=== PATIENT | female | born 1945 | race Caucasian/White ===

== ENCOUNTER → 2017-01-17 | Outpatient (CLI) | payer MEDICARE ==
--- NOTE | 2017-01-17 11:32 | MM ---
Reason for exam: screening (asymptomatic). Last mammogram was performed 1 year ago. History: Patient is postmenopausal. Family history of breast cancer in mother at age 82. Physical Findings: A clinical breast exam by your physician is recommended on an annual basis and results should be correlated with mammographic findings. MG 3D Screening Mammo W/Cad Bilateral CC and MLO view(s) were taken. Prior study comparison: January 16, 2016, bilateral MG 3d screening mammo w/cad. January 12, 2015, bilateral MG screening mammo w CAD. January 11, 2014, bilateral digital screening mammo w/CAD. There are scattered fibroglandular densities. There is chronic nodularity bilaterally. There is no discrete abnormality. ASSESSMENT: Benign, BI-RAD 2 RECOMMENDATION: Routine screening mammogram of both breasts in 1 year.
== END | disposition home or self-care (01) ==
LOC: RADMAMWWP 10:51
PROVIDERS: ATTEND Family Medicine
DX: Z12.31 Encounter for screening mammogram for malignant neoplasm of breast (principal)
CPT/HCPCS: 77063; G0202

== ENCOUNTER → 2018-01-20 | Outpatient (CLI) | payer MEDICARE ==
--- NOTE | 2018-01-21 13:46 | MM ---
Reason for exam: screening (asymptomatic). Last mammogram was performed 1 year ago. History: Patient is postmenopausal. Family history of breast cancer in mother at age 82. Physical Findings: A clinical breast exam by your physician is recommended on an annual basis and results should be correlated with mammographic findings. MG 3D Screening Mammo W/Cad Bilateral CC and MLO view(s) were taken. Prior study comparison: January 17, 2017, bilateral MG 3d screening mammo w/cad. January 16, 2016, bilateral MG 3d screening mammo w/cad. There are scattered fibroglandular densities. Finding: There are typically benign round, diffuse/scattered and grouped calcifications in the left breast. There is a chronic nodularity bilaterally. There is no discrete abnormality. ASSESSMENT: Benign, BI-RAD 2 RECOMMENDATION: Routine screening mammogram of both breasts in 1 year.
== END | disposition home or self-care (01) ==
LOC: RADMAMWWP 09:21
PROVIDERS: ATTEND Family Medicine
DX: Z12.31 Encounter for screening mammogram for malignant neoplasm of breast (principal)
CPT/HCPCS: 77063; 77067

== ENCOUNTER → 2019-01-21 | Outpatient (CLI) | payer MEDICARE ==
--- NOTE | 2019-01-22 11:04 | MM ---
Reason for exam: screening (asymptomatic). Last mammogram was performed 1 year ago. History: Patient is postmenopausal. Family history of breast cancer in mother at age 82. Physical Findings: A clinical breast exam by your physician is recommended on an annual basis and results should be correlated with mammographic findings. MG 3D Screening Mammo W/Cad Bilateral CC and MLO view(s) were taken. Prior study comparison: January 20, 2018, bilateral MG 3d screening mammo w/cad. January 17, 2017, bilateral MG 3d screening mammo w/cad. There are scattered fibroglandular densities. There is a 3mm group of increasing calcifications in the left central slightly superior lower breast at middle depth. Stable left upper outer quadrant focal asymmetry. ASSESSMENT: Incomplete: need additional imaging evaluation, BI-RAD 0 RECOMMENDATION: Special view mammogram of the left breast. [facility] will attempt to contact patient to return for supplemental views.
== END | disposition home or self-care (01) ==
LOC: RADMAMWWP 09:03
PROVIDERS: ATTEND Family Medicine
DX: Z12.31 Encounter for screening mammogram for malignant neoplasm of breast (principal); Z80.3 Family history of malignant neoplasm of breast
CPT/HCPCS: 77063; 77067

== ENCOUNTER → 2019-01-27 | Outpatient (CLI) | payer MEDICARE ==
--- NOTE | 2019-01-28 07:40 | MM ---
Reason for exam: additional evaluation requested from abnormal screening. Last mammogram was performed less than 1 month ago. History: Patient is postmenopausal. Family history of breast cancer in mother at age 82. Physical Findings: Nurse did not find any significant physical abnormalities on exam. MG 3D Work Up W/Cad LT CC with magnification, LM with magnification, and LM view(s) were taken of the left breast. Prior study comparison: January 21, 2019, bilateral MG 3d screening mammo w/cad. January 20, 2018, bilateral MG 3d screening mammo w/cad. The breast tissue is heterogeneously dense. This may lower the sensitivity of mammography. There is an increasing group of 3mm calcifications in the upper inner quadrant at middle depth that have increased in size when compared in comparison to 2016. These results were verbally communicated with the patient and result sheet given to the patient on 01/27/19. ASSESSMENT: Suspicious, BI-RAD 4 RECOMMENDATION: Stereotactic core biopsy of the left breast. Called with mammographic findings and has scheduled an appointment for the patient for 02/15/[address] Covarrubias. PRELIMINARY REPORT CALLED AND FAXED TO DR. COVARRUBIAS ON 01/27/19.
== END | disposition home or self-care (01) ==
LOC: RADMAMWWP 13:58
PROVIDERS: ATTEND Family Medicine
DX: R92.8 Other abnormal and inconclusive findings on diagnostic imaging of breast (principal)
CPT/HCPCS: 77065; G0279; 77061

== ENCOUNTER → 2019-02-20 | Outpatient (CLI) | payer MEDICARE ==
[2019-02-20 11:31] VITALS: BP 189/86; PULSE 72; RESP 18; BMI 41.5
--- NOTE | 2019-02-20 12:02 | P.GSHP ---
History of Present Illness H&P Date: 02/20/19 Chief Complaint: Mammographic abnormality left breast Sangita is a 73-year-old white female who on a routine screening mammogram was noted to have an area of concern in her left breast. Of additional views of the left breast revealed some increasing calcification in a 3 mm groove with calcifications in the upper inner quadrant at middle depth. This was performed and 326-19. Sangita has not felt anything of concern in her breast. She has no nipple discharge or skin changes of concern. She has no history of any trauma or infection in the past. She has no history of any nipple discharge or changes. She has never had a biopsy of the breast. Family History: mother: of breast cancer at 84 4 brothers: prostate cancer grandfather maternal: prostate Hormonal history: Menarche:12 : , breast fed: no, first born at 21 menopause: 54 BCP: yes, 8 years hormones: none Past surgical history: 1. Tubal ligation 2. Tonsillectomy 3. right knee surgery Past medical history: 1. Hypertension 2. artheritis Social history: Smoke: Never Alcohol: Weekends Drugs: Negative - Constitutional Constitutional: Denies chills, Denies fever - EENT Eyes: denies blurred vision, denies pain Ears: deny: decreased hearing, tinnitus Ears, nose, mouth and throat: Denies headache, Denies sore throat - Breasts Breasts: bilateral: as per HPI - Cardiovascular Cardiovascular: Reports high blood pressure - Respiratory Respiratory: Denies cough, Denies 7 - Gastrointestinal Gastrointestinal: Denies abdominal pain, Denies diarrhea, Denies nausea, Denies vomiting - Genitourinary (Female) Genitourinary: Denies dysuria, Denies hematuria - Menstruation Menstruation: Reports postmenopausal - Musculoskeletal Comment: arthritis - Integumentary Comment: psoriasis - Neurological Neurological: Denies numbness, Denies weakness - Psychiatric Psychiatric: Denies anxiety, Denies depression - Endocrine Endocrine: Denies fatigue, Denies weight change - Hematologic/Lymphatic Comment: none - Allergic/Immunologic Allergic/Immunologic: Reports seasonal allergies Past Medical History Past Medical History: Hypertension History of Any Multi-Drug Resistant Organisms: None Reported Past Surgical History: Tubal Ligation Past Anesthesia/Blood Transfusion Reactions: No Reported Reaction Smoking Status: Never smoker - Past Family History Mother History Unknown: Yes Family Medical History: Cancer Additional Family Medical History / Comment(s): breast cancer Medications and Allergies Home Medications Medication Instructions Recorded Confirmed Type Cinnamon Bark [Cinnamon] 1 tablet PO DAILY 02/11/19 02/20/19 History Meloxicam [Mobic] 1 tab PO DAILY 02/11/19 02/20/19 History Pravastatin Sodium [Pravachol] 1 tablet PO WEEKLY 02/11/19 02/20/19 History Ubidecarenone [Co Q-10] 100 mg PO DAILY 02/11/19 02/20/19 History Vit D3/Folic Acid/B2/B6/B12 1 tablet PO DAILY 02/11/19 02/20/19 History [Folgard Tablet] amLODIPine [Norvasc] 1 tab PO DAILY 02/11/19 02/20/19 History Diclofenac Sodium [Voltaren Gel] 2 gram TOPICAL 02/20/19 History Allergies Allergy/AdvReac Type Severity Reaction Status Date / Time latex Allergy Rash/Hives Verified 02/20/19 11:33 loratadine [From Claritin] AdvReac Unknown Unverified 02/20/19 11:33 sulfamethoxazole AdvReac Unknown Unverified 02/20/19 11:33 [From Bactrim] trimethoprim [From Bactrim] AdvReac Unknown Unverified 02/20/19 11:33 Surgical - Exam Vital Signs Pulse Resp BP Pulse Ox 72 18 189/86 98 02/20/19 11:28 02/20/19 11:28 02/20/19 11:28 02/20/19 11:28 BMI 41.6 - General obese - Eyes normal ocular movement - ENT no hearing loss, no congestion - Neck trachea midline - Respiratory normal respiratory effort, clear to auscultation - Cardiovascular Rhythm: regular Heart Sounds: normal: S1, S2 - Abdomen Abdomen: soft, non tender, no guarding, no rigid, no rebound - Neurologic no disoriented, no combative - Musculoskeletal limited secondary to arthritis - Psychiatric oriented to time, oriented to person, oriented to place, speech is normal, memory intact breast exam: BRA 44DDD right breast: Multi-positional exam no dominant masses or nodules of concern, fibrocystic changes, resolving fungal infection inferior to the breast Right axilla: No adenopathy of concern Left breast: Multi-positional exam no dominant masses or nodules of concern, the adult special attention to the upper inner area did not reveal any discrete masses or lesions of concern Left axilla: No adenopathy of concern Results Mammogram results reviewed Assessment and Plan Assessment: Impression: 1. Radiographic abnormality left breast 2. Fibrocystic breast changes 3. Hypertension 4. Arthritis 5. Family history of cancer 6. Resolving fungal infection under right breast 7. BMI 41.6 Plan: 1. Stereotactic core biopsy of the left breast 2. Medical management of medical conditions 3. Patient has stopped her morbid and will not take any rotators between now and the biopsy I discussed risk and benefits of the procedure with the patient and her they understand and wish to proceed. CC: Dr. Velazquez
== END | disposition home or self-care (01) ==
LOC: WWCWWP 11:13
PROVIDERS: ATTEND Surgery
DX: Z53.9 Procedure and treatment not carried out, unspecified reason (principal)

== ENCOUNTER → 2019-02-26 | Day surgery (SDC) | payer MEDICARE ==
[2019-02-26 07:29] VITALS: BP 145/89; PULSE 79; RESP 16; TEMP 98.4; BMI 42.7
--- NOTE | 2019-02-26 08:58 | P.PN ---
Progress Note - Text Progress Note Date: 02/26/19 Sangita is a 73-year-old white female with a radiographic abnormality in her left breast. Attempted stereotactic core biopsy was unsuccessful. The lesion could not be localized from multiple blood vessels. Therefore, after review with radiology it was recommended she undergo a needle local excision and excision in the operating room. The patient and her family are aware of this. This will be scheduled in the near future. She understands the risks and benefits and wishes to proceed. Risks include but are not limited to bleeding, infection, or inability to identify the lesion.
--- NOTE | 2019-02-26 19:39 | MM ---
EXAMINATION TYPE: MG discontinued stereo core LT DATE OF EXAM: 02/26/2019 COMPARISON: 01/21/2019 and 01/27/2019 CLINICAL HISTORY: 73-year-old female referred for stereotactic core needle biopsy of 9:00 left breast microcalcifications. TECHNIQUE: Canceled procedure. FINDINGS: The procedure of stereotactic guided core biopsy was explained to the patient. Benefits, alternatives, and risks were discussed. An informed consent was then obtained. The shortness pathway for biopsy was, a medial approach. However, the patient was placed in compression in both medial and orthogonal planes but a safe path to the calcifications could not be secured due to overlying blood vessels despite multiple attempts at repositioning and rolling the breast. Together with Dr. Noah Villa, decision was made to convert to needle localization with excision for the 9:00 left breast microcalcifications. IMPRESSION: Canceled stereotactic core needle biopsy of 9:00 left breast microcalcifications due to persistent overlying vessels despite multiple attempts at repositioning. The patient will follow-up with Dr. Noah Villa for needle localization and excision of microcalcifications. LYRIC
== END ==
LOC: RADMAMWWP 07:04
PROVIDERS: ATTEND Surgery
DX: R92.8 Other abnormal and inconclusive findings on diagnostic imaging of breast (principal); Z53.8 Procedure and treatment not carried out for other reasons; Z88.2 Allergy status to sulfonamides; Z91.040 Latex allergy status

== ENCOUNTER 2019-03-17 07:56 | Day surgery (SDC) | payer MEDICARE ==
[2019-03-16 10:08] VITALS: BMI 42.2
[~2019-03-17 07:56] MED LIST: DEXAMETHASONE SOD PHOSPHATE 10 MG/ML 1 ML VIAL IV ONE; HYDROmorphone 0.5 MG/0.5 ML SYRINGE IVP PRN; MIDAZOLAM 2 MG/2 ML VIAL IV PRN; ONDANSETRON 4 MG/2 ML VIAL IVP ONE; Pre Op ABX Message 1 EACH MISC MISCELLANE ONE
--- NOTE | 2019-03-17 08:27 | P.GSHP ---
History of Present Illness H&P Date: 03/17/19 Chief Complaint: Radiographic abnormality left breast The patient is a 73-year-old white female who underwent a routine screening mammogram was noted to have an area of concern in her left breast. Additional views of the left breast revealed some increasing calcification and a 3 mm area with calcification in the upper inner quadrant at middle depth. This radiograph was performed on . She has not noted any skin changes or masses in her breasts. She denies any nipple discharge. She has no history of any trauma or infection in the past. She has never had a biopsy of her breast. An attempt at stereo biopsy was performed and [phone]. The lesion cannot be localized from multiple blood vessels. Therefore after review with radiology was recommended she undergo needle localization and excisional biopsy in the operating room. Family history: Mother: Diet breast cancer at 84 4 brothers: Prostate cancer Maternal grandfather: Prostate cancer Hormonal history: Menarche: 12 Pregnancies: , breast fed: No, first both at 21 Menopause: 54 Procedure post: Yes 8 years Hormones: Negative Past surgical history: 1. Tubal ligation 2. Tonsillectomy 3. Right knee surgery Past medical history: 1. Hypertension 2. Arthritis Social history: Smoke: Negative Alcohol: We consider Drugs: Negative - Constitutional Constitutional: Denies chills, Denies fever - EENT Eyes: denies blurred vision, denies pain Ears: deny: decreased hearing, tinnitus Ears, nose, mouth and throat: Denies headache, Denies sore throat - Cardiovascular Cardiovascular: Reports high blood pressure - Respiratory Respiratory: Denies cough, Denies 7 - Gastrointestinal Gastrointestinal: Denies abdominal pain, Denies diarrhea, Denies nausea, Denies vomiting - Genitourinary (Female) Genitourinary: Denies dysuria, Denies hematuria - Menstruation Menstruation: Reports postmenopausal - Musculoskeletal Comment: arthritis - Integumentary Comment: psoriasis - Neurological Neurological: Denies numbness, Denies weakness - Psychiatric Psychiatric: Denies anxiety, Denies depression - Endocrine Endocrine: Denies fatigue, Denies weight change - Hematologic/Lymphatic Comment: none - Allergic/Immunologic Allergic/Immunologic: Reports seasonal allergies Past Medical History Past Medical History: GERD/Reflux, Hypertension, Osteoarthritis (OA), Skin Disorder Additional Past Medical History / Comment(s): varicose veins, seasonal allergies, patch of eczema on leg, 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", arthritis in feet and ankles History of Any Multi-Drug Resistant Organisms: None Reported Past Surgical History: Joint Replacement, Tonsillectomy, Tubal Ligation Additional Past Surgical History / Comment(s): melanoma removed from nose, rt knee replacement Past Anesthesia/Blood Transfusion Reactions: Motion Sickness Smoking Status: Never smoker - Past Family History Mother History Unknown: Yes Family Medical History: Cancer Additional Family Medical History / Comment(s): breast cancer Brother(s) Family Medical History: Cancer Additional Family Medical History / Comment(s): 4 brothers had prostate cancer Medications and Allergies Home Medications Medication Instructions Recorded Confirmed Type Cinnamon Bark [Cinnamon] 500 mg PO BID 02/11/19 03/16/19 History Pravastatin Sodium [Pravachol] 40 mg PO MOWEFR 02/11/19 03/16/19 History Ubidecarenone [Co Q-10] 100 mg PO DAILY 02/11/19 03/16/19 History Diclofenac Sodium [Voltaren Gel] 1 applicate TOPICAL DAILY PRN 02/20/19 03/16/19 History Cholecalciferol (Vitamin D3) 1,000 unit PO DAILY 03/16/19 03/16/19 History [Vitamin D3] Fluticasone Nasal [place] [Flonase 1 spray EA NOSTRIL DAILY 03/16/19 03/16/19 Hi story Nasal [place]] Magnesium 200 mg PO DAILY 03/16/19 03/16/19 History Meloxicam, Submicronized [Vivlodex] 5 mg PO DAILY 03/16/19 03/16/19 History Valsartan [Diovan] 160 mg PO DAILY 03/16/19 03/16/19 History Allergies Allergy/AdvReac Type Severity Reaction Status Date / Time clarithromycin Allergy nervous Verified 03/16/19 09:56 latex Allergy Rash/Hives/red Verified 03/16/19 09:56 skin sulfamethoxazole AdvReac Unknown Unverified 03/16/19 09:56 [From Bactrim] trimethoprim [From Bactrim] AdvReac Unknown Unverified 03/16/19 09:56 Surgical - Exam BMI 41.6 - General obese - Eyes normal ocular movement - ENT normal pinna, no hearing loss - Neck no masses, trachea midline - Respiratory normal respiratory effort, clear to auscultation - Cardiovascular Rhythm: regular Heart Sounds: normal: S1, S2 - Abdomen Abdomen: soft, non tender, no guarding, no rigid, no rebound - Integumentary normal turgor - Neurologic no disoriented, no combative - Musculoskeletal limited secondary to arthritis - Psychiatric oriented to time, oriented to person, oriented to place, speech is normal, memory intact Breast exam BRA 44DDD Right breast: Multi-positional exam no dominant masses or nodules of concern, fibrocystic changes Right axilla: No adenopathy of concern Left breast: Multiple positional exam no dominant masses or nodules of concern, especially attention to the upper inner area did not reveal any discrete masses or lesions of concern Left axilla: No adenopathy of concern Results Mammogram reviewed Assessment and Plan Assessment: Impression: 1. Radiographic abnormality left breast 2. Attempted stereotactic core biopsy unsuccessful secondary to vasculature in the area 3. Fibrocystic breast changes 4. Hypertension 5. Arthritis 6. Family history of cancer 7. BMI 41.6 Plan: 1. Needle localization and excisional biopsy the area of concern in the left breast 2. Medical management of medical conditions Risks and benefits of the procedure were discussed with the patient and her , they understand and wish to proceed. The patient is going to undergo a needle localization and excisional biopsy of the area of concern in the left breast. CC: Dr. Velazquez
[2019-03-17] MEDS ORDERED: ALPRAZolam 0.25 MG TAB PO ONE (08:33)
[2019-03-17] MEDS: LACTATED RINGERS 1,000 ML IV SCH ×2 (08:34→10:12)
[2019-03-17 09:01] VITALS: RESP 16
[2019-03-17] MEDS ORDERED: SODIUM BICARB 4% 5 ML VIAL (0.48 MEQ/ML) MISCELLANE ONE (09:38)
[2019-03-17] MEDS ORDERED: LIDOCAINE 1% INJ 10MG/ML (20 ML MDV) SQ ONE (09:38)
[2019-03-17] MEDS ORDERED: ONDANSETRON 4 MG/2 ML VIAL ONE (10:13)
[2019-03-17] MEDS ORDERED: fentaNYL (PF) 50 MCG/ML 2 ML AMP ONE (10:13)
[2019-03-17] MEDS ORDERED: SUCCINYLCHOLINE CHLORIDE VIAL 200 MG/10 ML VIAL IV ONE (10:13)
[2019-03-17] MEDS ORDERED: PHENYLEPHRINE-0.9% NACL SYG 1 MG/10 ML SYRINGE ONE (10:13)
[2019-03-17] MEDS ORDERED: PROPOFOL 10 MG/ML 20 ML VIAL IV ONE (10:13)
[2019-03-17] MEDS ORDERED: LIDOCAINE 1% INJ 10MG/ML (20 ML MDV) ONE (10:13)
[2019-03-17] MEDS ORDERED: MIDAZOLAM 2 MG/2 ML VIAL ONE (10:13)
[2019-03-17] MEDS ORDERED: DEXAMETHASONE SOD PHOS (MDV) 100 MG/10 ML VIAL ONE (10:13)
[2019-03-17] MEDS ORDERED: HEPARIN SODIUM,PORCINE 5,000 UNIT/ML 1 ML VIAL SQ ONE (10:40)
--- NOTE | 2019-03-17 11:38 | P.OP ---
Date of Procedure: 03/17/19 Preoperative Diagnosis: Mammographic abnormality, attempted stereo biopsy unsuccessful secondary to vascularity in the area Postoperative Diagnosis: Same Procedure(s) Performed: Needle localization and excisional biopsy Anesthesia: CARRIE Surgeon: Micaela Avila Estimated Blood Loss (ml): 5 IV fluids (ml): 600 Pathology: other (Breast tissue) Condition: stable Disposition: same day Indications for Procedure: Mammographic abnormality left breast, stereo tactic core biopsy attempt unsuccessful secondary to vascularity of the area therefore recommended for open biopsy Operative Findings: Fatty breast tissue Description of Procedure: The patient is a 73-year-old white female who is status post attempted stereotactic core biopsy of an area of microcalcifications in the left breast. Secondary to vascularity in the area of the lesion could not be sampled stereotactically. The patient was therefore recommended to undergo needle local excisional biopsy. The patient was taken first to the radiology department where the area of concern in the left breast was localized via needle localization. She was then brought to the operating suite. Following induction of general anesthesia the breast was prepped and draped in a sterile fashion. A crescent circumareolar incision was performed. The tissue between the crescent incisions was de- epithelialized. A full-thickness incision was then made at the medial portion of the crescent. Dissection was performed down to the needle. The needle was brought through the skin. The area of the tip of the needle was grasped using an Allis clamp. The tissue was excised using the Harmonic scalpel as well as the Bovie. After assured that hemostasis was attained the specimen was removed. The specimen was painted for orientation. Titanium clips were placed to lula the area. The wound was well irrigated. The deep tissues were closed using 3-0 Vicryl suture. The dermal tissue was closed using 3-0 Vicryl suture. The skin was closed using a 4-0 Monocryl followed by a 5-0 nylon skin suture. Radiograph of the specimen revealed the area of concern had been removed. The patient tolerated the procedure in stable condition. All instrument and sponge counts were correct at the end of the case.
--- NOTE | 2019-03-17 11:40 | P.DS ---
Providers Attending physician: Micaela Avila Primary care physician: Lovely Velazquez Plan - Discharge Summary Discharge Rx Participant: Yes New Discharge Prescriptions: No Action Ubidecarenone [Co Q-10] 100 mg PO DAILY Pravastatin Sodium [Pravachol] 40 mg PO MOWEFR Cinnamon Bark [Cinnamon] 500 mg PO BID Diclofenac Sodium [Voltaren Gel] 1 applicate TOPICAL DAILY PRN PRN Reason: Pain Cholecalciferol (Vitamin D3) [Vitamin D3] 1,000 unit PO DAILY Meloxicam, Submicronized [Vivlodex] 5 mg PO DAILY Valsartan [Diovan] 160 mg PO DAILY Magnesium 200 mg PO DAILY Fluticasone Nasal [place] [Flonase Nasal [place]] 1 spray EA NOSTRIL DAILY Discharge Medication List Cinnamon Bark [Cinnamon] 500 mg PO BID 02/11/19 [History] Pravastatin Sodium [Pravachol] 40 mg PO MOWEFR 02/11/19 [History] Ubidecarenone [Co Q-10] 100 mg PO DAILY 02/11/19 [History] Diclofenac Sodium [Voltaren Gel] 1 applicate TOPICAL DAILY PRN 02/20/19 [History] Cholecalciferol (Vitamin D3) [Vitamin D3] 1,000 unit PO DAILY 03/16/19 [History] Fluticasone Nasal [place] [Flonase Nasal [place]] 1 spray EA NOSTRIL DAILY 03/16/19 [History] Magnesium 200 mg PO DAILY 03/16/19 [History] Meloxicam, Submicronized [Vivlodex] 5 mg PO DAILY 03/16/19 [History] Valsartan [Diovan] 160 mg PO DAILY 03/16/19 [History] Follow up Appointment(s)/Referral(s): Micaela Avila MD [STAFF PHYSICIAN] - 1 Week Activity/Diet/Wound Care/Special Instructions: do not drive today may shower after 48 hours wear bra at all times until seen by Dr. Zamora unless in shower Discharge Disposition: HOME SELF-CARE
--- NOTE | 2019-03-17 11:51 | MM ---
EXAMINATION TYPE: MG pre op needle loc LT, MG surgical specimen LT DATE OF EXAM: 03/17/2019 COMPARISON: Exams dating back to 01/12/2015 CLINICAL HISTORY: 3 mm group of calcifications in the upper inner quadrant at middle depth that of increased in size from 2016 for which stereotactic guided biopsy was unsuccessful. Needle localization was requested. TECHNIQUE: Needle localization with wire placement and surgical excision of area of concern in the left breast. FINDINGS: The procedure of needle localization with wire placement and than surgical excision was explained to the patient. Benefits, alternatives, and risks were discussed. An informed consent was then obtained. The shortest pathway for procedure was chosen. Shortest pathway was medial to lateral approach. The overlying skin was prepped and draped in usual sterile fashion. Lidocaine buffered with bicarbonate was used as anesthetic into the skin and subcutaneous tissue up to the level of area of concern. A 7 cm needle was used. It was placed via a medial to lateral approach under mammographic guidance. Subsequent 90 degrees mammogram show the needle to be in satisfactory position relative to the targeted area. At this point, wire was placed and the needle was withdrawn. The wire was fixed to patient's skin. Images were marked for surgeon. The patient tolerated the procedure well without any immediate complication. The patient was kept in the radiology department for short stay after the procedure and then taken to surgery for surgical excision. Targeted calcifications and wire are identified in specimen mammogram. The patient was kept in hospital for short stay after the procedure and then discharged home in stable condition. IMPRESSION: Successful, uncomplicated needle localization with wire placement and surgical excision of 3 mm group of suspicious calcifications in the upper inner quadrant of the left breast at middle depth, full pathology results to follow. Pathology Results: Benign A. LEFT BREAST, MAMMOGRAPHICALLY ORIENTED LUMPECTOMY: Fibrocystic spectrum changes with multifocal intraductal mineralizations in benign mostly fatty breast parenchyma. No evidence of neoplasm. B. SKIN, LEFT BREAST, EXCISION: Benign skin. Recommendation Follow up mammogram of the left breast in 6 months. LYRIC
[2019-03-17 12:00] VITALS: TEMP 96.9
[2019-03-17 12:48] VITALS: BP 155/83; PULSE 64
== END 2019-03-17 13:22 | disposition home or self-care (01) ==
LOC: OR 07:56
PROVIDERS: ATTEND Surgery
DX: I10 Essential (primary) hypertension (principal); K21.9 Gastro-esophageal reflux disease without esophagitis; M19.079 Primary osteoarthritis, unspecified ankle and foot; L30.9 Dermatitis, unspecified; I83.90 Asymptomatic varicose veins of unspecified lower extremity; Z79.899 Other long term (current) drug therapy; Z88.2 Allergy status to sulfonamides; Z88.1 Allergy status to other antibiotic agents; Z91.040 Latex allergy status
CPT/HCPCS: 76098; 19281; 19125; J2250; J0330; J2405; J2001; J3010; J1100; J2370; J2704; 88305; 88307

== ENCOUNTER → 2019-03-26 | Outpatient (CLI) | payer MEDICARE ==
[2019-03-26 15:24] VITALS: BP 146/88; PULSE 69; RESP 18; TEMP 97.5; BMI 42.9
--- NOTE | 2019-03-26 16:14 | P.PN ---
Subjective Progress Note Date: 03/26/19 Sangita is a 73-year-old white female status post left breast needle local excisional biopsy. Pathology reveals fibrocystic spectrum changes with multifocal intraductal mineralization some benign fatty breast parenchyma. No evidence of cancer. The patient developed a rash on the area of the dressing an d has treated it with hydrocortisone cream with some resolution. Objective - Vital Signs Vital signs: Vital Signs Temp 97.5 F L 03/26/19 15:20 Pulse 69 03/26/19 15:20 Resp 18 03/26/19 15:20 BP 146/88 03/26/19 15:20 Pulse Ox 97 03/26/19 15:20 Intake & Output 03/25/19 03/26/19 03/26/19 18:59 06:59 18:59 Weight 113.398 kg - Constitutional General appearance: Present: obese - EENT Eyes: Present: EOMI ENT: Present: hearing grossly normal - Neck Neck: Present: normal ROM - Respiratory Respiratory: bilateral: CTA - Cardiovascular Rhythm: regular Heart sounds: normal: S1, S2 - Integumentary Integumentary Comment(s): Recurrent incision clean and dry Rash over the upper outer quadrant of the left breast which is maculopapular in nature. The sensitivity reaction to the dressing - Psychiatric Psychiatric: Present: A&O x's 3, appropriate affect, intact judgment & insight Assessment and Plan Assessment: Impression: 1. fibrocystic changes of hte left breast on exam Plan: 1. repeat mammogram and exam of the left breast in 6 months CC: Dr. Velazquez
== END | disposition home or self-care (01) ==
LOC: WWCWWP 15:14
PROVIDERS: ATTEND Surgery
DX: Z53.9 Procedure and treatment not carried out, unspecified reason (principal)

== ENCOUNTER → 2019-04-02 | Outpatient (CLI) | payer MEDICARE ==
[2019-04-02 10:37] VITALS: BP 147/87; PULSE 76; RESP 14; TEMP 97.7; BMI 41.5
== END ==
LOC: WWCWWP 10:31
PROVIDERS: ATTEND Surgery
DX: Z53.9 Procedure and treatment not carried out, unspecified reason (principal)

== ENCOUNTER → 2021-04-20 | Outpatient (CLI) | payer MEDICARE ==
--- NOTE | 2021-04-21 12:37 | MM ---
Reason for exam: screening (asymptomatic). Last mammogram was performed 2 years and 3 months ago. History: Patient is postmenopausal. Family history of breast cancer in mother at age 82. Benign MG pre op needle loc LT of the left breast, March 17, 2019. MG discontinued stereo core LT of the left breast, February 26, 2019. Physical Findings: A clinical breast exam by your physician is recommended on an annual basis and results should be correlated with mammographic findings. MG 3D Screening Mammo W/Cad Bilateral CC and MLO view(s) were taken. Prior study comparison: January 27, 2019, left breast MG 3d work up w/cad LT. January 21, 2019, bilateral MG 3d screening mammo w/cad. There are scattered fibroglandular densities. Left post operative changes. ASSESSMENT: Benign, BI-RAD 2 RECOMMENDATION: Routine screening mammogram of both breasts in 1 year.
== END | disposition home or self-care (01) ==
LOC: RADMAMWWP 15:45
PROVIDERS: ATTEND Family Medicine
DX: Z12.31 Encounter for screening mammogram for malignant neoplasm of breast (principal); Z78.0 Asymptomatic menopausal state; Z80.3 Family history of malignant neoplasm of breast
CPT/HCPCS: 77063; 77067

== ENCOUNTER → 2022-04-23 | Outpatient (CLI) | payer MEDICARE ==
--- NOTE | 2022-04-24 09:29 | MM ---
Reason for Exam: Screening (asymptomatic). Last screening mammogram was performed 12 month(s) ago. Patient History: Menarche at age 10. First Full-Term at age 21. Postmenopausal. 03/17/2019, Benign Core Biopsy on the left side. 02/26/2019, MG discontinued stereo core LT on the left side. Mother had breast cancer, age 82. Risk Values: Denice 5 year model risk: 4.3%. NCI Lifetime model risk: 8.1%. Prior Study Comparison: 01/21/2019 Bilateral Screening Mammogram, [facility]. 01/27/2019 Left Diagnostic Mammogram, [facility]. 04/20/2021 Bilateral Screening Mammogram, [facility]. Tissue Density: There are scattered fibroglandular densities. Findings: Analyzed By CAD. There is no suspicious group of microcalcifications or new suspicious mass in either breast. Postsurgical change left breast stable. Benign-appearing calcifications. Chronic nodularity stable. Overall Assessment: Benign, BI-RAD 2 Management: Screening Mammogram of both breasts in 1 year. A clinical breast exam by your physician is recommended on an annual basis and results should be correlated with mammographic findings. Electronically signed and approved by: Jus Tam M.D. Radiologis
== END | disposition home or self-care (01) ==
LOC: RADMAMWWP 09:14
PROVIDERS: ATTEND Family Medicine
DX: Z12.31 Encounter for screening mammogram for malignant neoplasm of breast (principal); Z78.0 Asymptomatic menopausal state; Z80.3 Family history of malignant neoplasm of breast
CPT/HCPCS: 77063; 77067

== ENCOUNTER → 2023-04-24 | Outpatient (CLI) | payer MEDICARE ==
--- NOTE | 2023-04-25 20:32 | MM ---
Reason for Exam: Screening (asymptomatic). Last screening mammogram was performed 12 month(s) ago. Patient History: Menarche at age 10. First Full-Term at age 21. Postmenopausal. 03/17/2019, Benign Core Biopsy on the left side. 02/26/2019, MG discontinued stereo core LT on the left side. Mother had breast cancer, age 82. Risk Values: Denice 5 year model risk: 4.3%. NCI Lifetime model risk: 7.5%. Prior Study Comparison: 01/27/2019 Left Diagnostic Mammogram, [facility]. 04/20/2021 Bilateral Screening Mammogram, [facility]. 04/23/2022 Bilateral MG 3D screening mammo w/cad, [facility]. Tissue Density: There are scattered fibroglandular densities. Findings: Analyzed By CAD. Bilateral surgical clips are noted. Chronic bilateral nodularity. There is no suspicious group of microcalcifications or new suspicious mass in either breast. Overall Assessment: Benign, BI-RAD 2 Management: Screening Mammogram of both breasts in 1 year. See note below in regards to patient's increased 5 year Denice score. Patient should continue monthly self-breast exams. A clinical breast exam by your physician is recommended on an annual basis. This exam should not preclude additional follow-up of suspicious palpable abnormalities. Note on Denice scores and lifetime risk: 1. A Denice score greater than 3% is considered moderate risk. If this is the case, consider specialist referral to assess eligibility for a risk reducing agent. 2. If overall lifetime risk for the development of breast cancer is 20% or higher, the patient may qualify for future screening with alternating mammogram and breast MRI. Electronically signed and approved by: Halina Valiente M.D. Radiologist
== END | disposition home or self-care (01) ==
LOC: RADMAMWWP 09:53
PROVIDERS: ATTEND Family Medicine
DX: Z12.31 Encounter for screening mammogram for malignant neoplasm of breast (principal); Z80.3 Family history of malignant neoplasm of breast; Z78.0 Asymptomatic menopausal state
CPT/HCPCS: 77063; 77067

== ENCOUNTER 2024-01-07 09:41 | Day surgery (SDC) | payer MEDICARE ==
[2024-01-07 10:57] VITALS: TEMP 97.4
[2024-01-07] MEDS: LACTATED RINGERS 1,000 ML IV SCH (10:58)
[2024-01-07] MEDS: LIDOCAINE 1% (10MG/ML) FOR IV START INTRADERMA PRN (10:58)
[2024-01-07] MEDS ORDERED: LIDOCAINE 1% INJ 10MG/ML (20 ML MDV) ONE (11:17)
[2024-01-07] MEDS ORDERED: PROPOFOL 10 MG/ML 20 ML VIAL IV ONE (11:17)
--- NOTE | 2024-01-07 11:37 | P.PCN ---
Date of Procedure: 01/07/24 Procedure(s) Performed: BRIEF HISTORY: Patient is a 78-year-old, pleasant, white female scheduled for an upper endoscopy as a part of evaluation of GERD and intermittent dysphagia to solids. PROCEDURE PERFORMED: Esophagogastroduodenoscopy with biopsy. PREOPERATIVE DIAGNOSIS: GERD and intermittent dysphagia to solids. IV sedation per anesthesia. ROCEDURE: After informed consent was obtained, the patient was brought into the endoscopy unit. IV sedation was administered by Anesthesia under continuous monitoring. Initially the Olympus GIF-140 video endoscope was inserted into the mouth. Esophagus intubated moderate to severe difficulty. There was evidence of Zenker's diverticulum noted in the proximal cervical esophagus and evidence of cricopharyngeal dysfunction. With gentle manipulation I was gradually able to intubate the esophagusIt and the scope was gradually advanced into the stoma ch and duodenum and carefully examined. The bulb and the second part of the duodenum appeared normal. The scope at this time was withdrawn to the stomach, adequately insufflated with air, and upon careful examination, mucosa of the antrum had diffuse mild gastritis and biopsies were done from this area. Mucosa of the, body, cardia and the fundus appeared normal. The scope was then withdrawn into the esophagus. Small hiatal hernia noted. The GE junction was located at 39 cm from the incisors. The esophagus appeared normal. There were no erosions or ulcerations seen and the patient tolerated the procedure well. IMPRESSION: 1. 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 2. Small hiatal hernia 3. Antral gastritis. RECOMMENDATIONS: The findings of this examination were discussed with the patient as well as a family. She was advised to follow with the biopsy results.. Continue with soft diet. Follow up in office in 3-4 weeks
[2024-01-07 12:43] VITALS: BP 145/73; PULSE 66; RESP 16
== END 2024-01-07 12:25 | disposition home or self-care (01) ==
LOC: ORWHC2ENDO 09:41
PROVIDERS: ATTEND Internal Medicine Gastroenterology
DX: K29.50 Unspecified chronic gastritis without bleeding (principal); K21.00 Gastro-esophageal reflux disease with esophagitis, without bleeding; K44.9 Diaphragmatic hernia without obstruction or gangrene; K22.5 Diverticulum of esophagus, acquired; I10 Essential (primary) hypertension; E78.5 Hyperlipidemia, unspecified; G35 Multiple sclerosis; Z79.899 Other long term (current) drug therapy; Z91.040 Latex allergy status; Z88.1 Allergy status to other antibiotic agents; Z88.8 Allergy status to other drugs, medicaments and biological substances
CPT/HCPCS: 43239; J2001; J2704; 88305

== ENCOUNTER → 2024-04-27 | Outpatient (CLI) | payer MEDICARE ==
--- NOTE | 2024-04-28 09:29 | MM ---
Reason for Exam: Screening (asymptomatic). Last screening mammogram was performed 12 month(s) ago. Patient History: Menarche at age 10. First Full-Term at age 21. Postmenopausal. 03/17/2019, Benign Core Biopsy on the left side. 02/26/2019, MG discontinued stereo core LT on the left side. Mother had breast cancer, age 82. Risk Values: Denice 5 year model risk: 4.2%. NCI Lifetime model risk: 6.9%. Prior Study Comparison: 04/20/2021 Bilateral Screening Mammogram, [facility]. 04/23/2022 Bilateral MG 3D screening mammo w/cad, [facility]. 04/24/2023 Bilateral MG 3D screening mammo w/cad, [facility]. Tissue Density: The breasts are almost entirely fatty. Findings: Analyzed By CAD. Left breast surgical clips. Right breast: There is no suspicious group of microcalcifications or new suspicious mass. Left breast: There is no suspicious group of microcalcifications or new suspicious mass. Overall Assessment: Negative, BI-RAD 1 Management: Screening Mammogram of both breasts in [address] [facility] will attempt to contact patient to return for supplemental views and ultrasound if indicated. Patient should continue monthly self-breast exams. A clinical breast exam by your physician is recommended on an annual basis. This exam should not preclude additional follow-up of suspicious palpable abnormalities. Note on Denice scores and lifetime risk: 1. A Denice score greater than 3% is considered moderate risk. If this is the case, consider specialist referral to assess eligibility for a risk reducing agent. 2. If overall lifetime risk for the development of breast cancer is 20% or higher, the patient may qualify for future screening with alternating mammogram and breast MRI. Electronically signed and approved by: Joaquin Peralta DO
== END | disposition home or self-care (01) ==
LOC: RADMAMWWP 08:58
PROVIDERS: ATTEND Family Medicine
DX: Z12.31 Encounter for screening mammogram for malignant neoplasm of breast (principal); Z80.3 Family history of malignant neoplasm of breast; Z78.0 Asymptomatic menopausal state
CPT/HCPCS: 77063; 77067

== ENCOUNTER → 2025-05-12 | Outpatient (CLI) | payer MEDICARE ==
--- NOTE | 2025-05-12 10:32 | MM ---
Reason for Exam: Screening (asymptomatic). Last mammogram was performed 1 year(s) and 1 month(s) ago. Patient History: Menarche at age 10. First Full-Term at age 21. Postmenopausal. 03/17/2019, Benign Core Biopsy on the left side. 02/26/2019, MG discontinued stereo core LT on the left side. Mother had breast cancer, age 82. Risk Values: Denice 5 year model risk: 4.1%. NCI Lifetime model risk: 6.2%. Prior Study Comparison: 04/23/2022 Bilateral MG 3D screening mammo w/cad, [facility]. 04/24/2023 Bilateral MG 3D screening mammo w/cad, [facility]. 04/27/2024 Bilateral MG 3D screening mammo w/cad, [facility]. Tissue Density: There are scattered areas of fibroglandular density. Findings: Analyzed By CAD. Chronic nodularity is stable outer aspect both breasts. Surgical clips medially in the left breast are redemonstrated. Tiny benign-appearing punctate calcifications in the bilateral breasts are redemonstrated. There is no suspicious group of microcalcifications or new suspicious mass in either breast. Overall Assessment: Benign, BI-RAD 2 Management: Screening Mammogram of both breasts in 1 year. . Patient should continue monthly self-breast exams. A clinical breast exam by your physician is recommended on an annual basis. This exam should not preclude additional follow-up of suspicious palpable abnormalities. Note on Denice scores and lifetime risk: 1. A Denice score greater than 3% is considered moderate risk. If this is the case, consider specialist referral to assess eligibility for a risk reducing agent. 2. If overall lifetime risk for the development of breast cancer is 20% or higher, the patient may qualify for future screening with alternating mammogram and breast MRI. [facility], , 05/12/2025 10:29 AM. Electronically signed and approved by: Jacob Baig M.D.
== END | disposition home or self-care (01) ==
LOC: RADMAMWWP 09:35
PROVIDERS: ATTEND Family Medicine
DX: Z12.31 Encounter for screening mammogram for malignant neoplasm of breast (principal); R92.323 Mammographic fibroglandular density, bilateral breasts; R92.1 Mammographic calcification found on diagnostic imaging of breast; Z78.0 Asymptomatic menopausal state; Z80.3 Family history of malignant neoplasm of breast
CPT/HCPCS: 77063; 77067